=== PATIENT | male | born 1970 | race Caucasian/White ===

== ENCOUNTER → 2021-08-28 | Outpatient (CLI) | payer OTHER ==
[~2021-08-28] MED LIST: ASPIRIN CHEWABL81 MG PO; LEVAQUIN500 MG PO; LOPRESSOR 50 MG50 MG PO; XARELTO 10 MG T10 MG PO; XARELTO 15 MG T15 MG PO; XARELTO10 MG PO
== END ==
LOC: HEART 5 08:15
DX: I20.9 Angina pectoris, unspecified (principal)
CPT/HCPCS: 78452; A9502

== ENCOUNTER → 2022-04-12 | Outpatient (CLI) | payer OTHER | LOC: LAB 07:03 | DX: M25.521 Pain in right elbow (principal) | CPT/HCPCS: 36415; 73080; 84550; 85652 ==

== ENCOUNTER → 2022-07-02 | Outpatient (CLI) | payer OTHER | END | disposition home or self-care (01) | LOC: RAD 09:00 | DX: M16.12 Unilateral primary osteoarthritis, left hip (principal) | CPT/HCPCS: J3301; Q9967 ==